=== PATIENT | female | born 1960 | race Caucasian/White ===

== ENCOUNTER 2017-10-04 20:44 | Inpatient (IN) | payer OTHER ==
[~2017-10-04] VITALS: Ht 154.9 cm; Wt 78.2 kg
[2017-10-04 20:49] VITALS: Ht 154.9 cm; Wt 78.2 kg
[2017-10-04] MEDS ORDERED: NOR5 PO (22:04)
[2017-10-04] MEDS ORDERED: GLIPIZIDE5 M2 PO (22:04)
[2017-10-04] MEDS ORDERED: COZAAR100 MG PO (22:05)
[2017-10-04] MEDS ORDERED: LOSARTAN POTASS1 TA6 PO (22:05)
[2017-10-04] MEDS ORDERED: D-20001 TAB PO (22:06)
[2017-10-04] MEDS ORDERED: METFORMIN HCL850 MG PO (22:06)
[2017-10-04 22:13] LABS: BASOPHIL % 0.3 % (0-2); PLATELET COUNT 205 x10^3mcL (130-400); RED CELL DISTRIBUTION WIDTH 12.5 % (11.5-14.5)
[2017-10-04 22:14] LABS: CALCIUM 8.7 mg/dL (8.5-10.1); CARBON DIOXIDE 27.6 mmol/L (21-32); CREATININE SERUM 1.3 mg/dL (0.6-1.0); POTASSIUM SERUM 3.7 mmol/L (3.5-5.1)
[2017-10-04 22:19] LABS: BILIRUBIN TOTAL 0.6 mg/dL (0.20-1.00); TOTAL PROTEIN, SERUM 7.4 g/dL (6.4-8.2)
[2017-10-04 22:59] VITALS: BP 175/98
[2017-10-05 05:27] VITALS: BP 138/79
[2017-10-05 06:24] LABS: BASOPHIL % 0.5 % (0-2); PLATELET COUNT 188 x10^3mcL (130-400); RED CELL DISTRIBUTION WIDTH 12.7 % (11.5-14.5)
[2017-10-05 06:25] LABS: CALCIUM 8.3 mg/dL (8.5-10.1); CARBON DIOXIDE 27.1 mmol/L (21-32); CREATININE SERUM 1.2 mg/dL (0.6-1.0); POTASSIUM SERUM 3.7 mmol/L (3.5-5.1)
[2017-10-05 09:19] VITALS: BP 143/87
[2017-10-05 14:21] VITALS: BP 151/83
[2017-10-05 17:50] VITALS: BP 141/81
[2017-10-05 21:35] VITALS: BP 144/92
[2017-10-06 05:31] VITALS: BP 102/68
[2017-10-06 06:50] LABS: BILIRUBIN TOTAL 1.1 mg/dL (0.20-1.00); CALCIUM 7.8 mg/dL (8.5-10.1); CARBON DIOXIDE 30.6 mmol/L (21-32); CREATININE SERUM 1.5 mg/dL (0.6-1.0); POTASSIUM SERUM 3.5 mmol/L (3.5-5.1)
[2017-10-06 06:54] LABS: ALBUMIN 2.4 g/dL (3.4-5.0); TOTAL PROTEIN, SERUM 5.9 g/dL (6.4-8.2)
[2017-10-06 07:08] LABS: BASOPHIL % 0.5 % (0-2); PLATELET COUNT 181 x10^3mcL (130-400); RED CELL DISTRIBUTION WIDTH 12.6 % (11.5-14.5)
[2017-10-06 09:22] VITALS: BP 105/63
[2017-10-06 13:42] VITALS: BP 116/76
[2017-10-06] MEDS ORDERED: CLINDAMYCIN HC300 MG PO (14:08)
[2017-10-06] MEDS ORDERED: NORCO1 TA2 PO (14:08)
[2017-10-06 15:06] VITALS: BP 116/76
[2017-10-06 17:36] VITALS: BP 134/88
== END 2017-10-06 20:00 | disposition home health service (06) | DRG 223 ==
LOC: ED 20:44 → DU 22:03
PROVIDERS: Emergency Medicine; Internal Medicine Pulmonary Disease; Surgery; ADMIT Internal Medicine Pulmonary Disease
PROC: 0D9P0ZZ Drainage of Rectum, Open Approach (ICD-10-PCS; principal; 2017-10-05 11:00)
DX: K61.1 Rectal abscess (principal); E66.01 Morbid (severe) obesity due to excess calories; I10 Essential (primary) hypertension; E86.0 Dehydration; E11.9 Type 2 diabetes mellitus without complications; Z79.82 Long term (current) use of aspirin; Z79.84 Long term (current) use of oral hypoglycemic drugs
CPT/HCPCS: 82962; 83880; 90658; J2001; J2250; J2405; J2543; J3010; J3370; J3490; J7030

== ENCOUNTER 2018-03-06 16:28 | Emergency (ER) | payer OTHER ==
[~2018-03-06] VITALS: Ht 160 cm; Wt 78.1 kg
[~2018-03-06 16:28] MED LIST: CLINDAMYCIN HC300 MG PO; COZAAR100 MG PO; D-20001 TAB PO; GLIPIZIDE5 M2 PO; LOSARTAN POTASS1 TA6 PO; METFORMIN HCL850 MG PO; NOR5 PO; NORCO1 TA2 PO
[2018-03-06 16:39] VITALS: Ht 160 cm; Wt 78.1 kg
[2018-03-06 19:23] VITALS: BP 132/79
== END 2018-03-06 19:23 | disposition home or self-care (01) ==
LOC: ED 16:28
DX: S86.911A Strain of unspecified muscle(s) and tendon(s) at lower leg level, right leg, initial encounter (principal); I10 Essential (primary) hypertension; E11.9 Type 2 diabetes mellitus without complications; Z88.8 Allergy status to other drugs, medicaments and biological substances; X58.XXXA Exposure to other specified factors, initial encounter; Y93.89 Activity, other specified; Y92.89 Other specified places as the place of occurrence of the external cause; Y99.8 Other external cause status
CPT/HCPCS: Q0092